=== PATIENT | male | born 1945 | race Caucasian/White ===

== ENCOUNTER → 2017-08-31 | Outpatient (CLI) | payer MEDICARE, OTHER ==
[~2017-08-31] MED LIST: ASPIRIN 81M81 MG/TA2 PO; DIABETA 5MG5 MG/TAB PO; DIABETA5 MG PO; GLUCOTROL5 MG PO; GLUMETZA1000 MG PO; JANUVIA 100MG100 MG PO; JANUVIA100 MG PO; METFORMIN 1000 MG PO; MULTIPLE VITAMI1 TA2 PO; PROTONIX 40MG T40 MG PO; VYTORIN; VYTORIN 10 MG-21 TAB PO
== END ==
LOC: COL.LAB 17:08
DX: C67.9 Malignant neoplasm of bladder, unspecified (principal)

== ENCOUNTER → 2022-07-15 | Outpatient (CLI) | payer MEDICARE, OTHER | LOC: COL.RAD 10:00 | DX: C67.9 Malignant neoplasm of bladder, unspecified (principal); C78.7 Secondary malignant neoplasm of liver and intrahepatic bile duct; K76.89 Other specified diseases of liver ==

== ENCOUNTER → 2023-01-11 | Outpatient (CLI) | payer MEDICARE, OTHER | LOC: COL.RAD 12-31 11:00 | DX: K76.9 Liver disease, unspecified (principal); R91.1 Solitary pulmonary nodule; C67.9 Malignant neoplasm of bladder, unspecified ==